=== PATIENT | male | born 1995 | race Caucasian/White ===

== ENCOUNTER 2021-08-23 03:42 | Emergency (ER) | payer OTHER ==
[2021-08-23] MEDS ORDERED: Lorazepam 2 MG/ML VIAL ONE (04:27)
[2021-08-23] MEDS ORDERED: Ondansetron PF 4 MG/2 ML Vial ONE (04:27)
[2021-08-23 04:39] LABS: ALT (SGPT) 56 U/L (8-55); AST (SGOT) 57 U/L (5-34); Acetaminophen Less than 6.0 mcg/mL (10.0-30.0); Albumin 4.5 g/dL (3.5-5.0); Alkaline Phosphatase 74 U/L (40-110); Anion Gap 19 mmol/L (10-20); BUN (Urea Nitrogen) 9 mg/dL (8.9-20.6); Bilirubin, Total 0.4 mg/dL (0.2-1.2); CK (CPK) 314 U/L (30-200); Calc. Creatinine Clearance 0 mL/min (70-130); Calcium 9.1 mg/dL (7.8-10.44); Carbon Dioxide 28 mmol/L (22-29); Chloride 102 mmol/L (98-107); Globulin 3.5 g/dL (2.4-3.5); Glucose 125 mg/dL (70-105); Magnesium 1.7 mg/dL (1.6-2.6); Potassium 3.2 mmol/L (3.5-5.1); Salicylate Less than 8.0 mg/dL (15.0-30.0); Sodium 146 mmol/L (136-145)
[2021-08-23 04:47] LABS: #Eosinphils 0.1 10x3/uL (0.0-0.5); #Monocytes 0.4 10x3/uL (0.0-1.1); #Neutrophils 4.5 10x3/uL (1.5-8.4); %Basophils 0.6 % (0.0-2.0); %Eosinophils 1.4 % (0.0-6.0); %Lymphocytes 29.4 % (18.0-47.0); %Monocytes 5.6 % (0.0-10.0); %Neutrophils 62.6 % (40.0-75.0); Hemoglobin 14.9 g/dL (13.5-17.5); Mean Corpuscular HGB CONC 33.6 g/dL (32.0-36.0); Mean Corpuscular Hemoglobin 28.3 pg (27.0-33.0); Mean Corpuscular Volume 84.1 fl (81.2-95.1); Mean Platelet Volume 8.8 fl (7.4-10.4); Platelet Count 186 10x3/uL (150-450); Red Blood Cell (RBC) Count 5.27 10x6/uL (4.32-5.72); White Blood Cell (WBC) Count 7.2 10x3/uL (3.5-10.5)
[2021-08-23 04:56] LABS: Alcohol 413 mg/dL (Less than 10)
== END 2021-08-23 05:44 | disposition left against medical advice (07) ==
LOC: CSHERS 03:42
DX: F10.129 Alcohol abuse with intoxication, unspecified (principal); Y90.8 Blood alcohol level of 240 mg/100 ml or more
CPT/HCPCS: 70450; 71260; 72125; 74177; 80053; 80307; 82550; 83690; 83735; 85025; 93005; J2060; J2405

== ENCOUNTER 2021-08-25 07:54 | Inpatient (IN) | payer OTHER ==
[2021-08-25] MEDS ORDERED: Lorazepam 2 MG/ML VIAL ONE ×3 (08:00→09:55)
[2021-08-25 08:45] LABS: #Monocytes 0.3 10x3/uL (0.0-1.1); #Neutrophils 3.7 10x3/uL (1.5-8.4); %Basophils 0.7 % (0.0-2.0); %Eosinophils 0.7 % (0.0-6.0); %Lymphocytes 29.6 % (18.0-47.0); %Monocytes 5.3 % (0.0-10.0); %Neutrophils 63.5 % (40.0-75.0); Hemoglobin 13.2 g/dL (13.5-17.5); Mean Corpuscular HGB CONC 33.2 g/dL (32.0-36.0); Mean Corpuscular Volume 84.5 fl (81.2-95.1); Mean Platelet Volume 8.9 fl (7.4-10.4); Platelet Count 129 10x3/uL (150-450); RBC Distribution Width 12.5 % (11.5-14.5); Red Blood Cell (RBC) Count 4.71 10x6/uL (4.32-5.72); White Blood Cell (WBC) Count 5.8 10x3/uL (3.5-10.5)
[2021-08-25 08:52] LABS: ALT (SGPT) 47 U/L (8-55); AST (SGOT) 58 U/L (5-34); Acetaminophen Less than 6.0 mcg/mL (10.0-30.0); Albumin 4.2 g/dL (3.5-5.0); Alcohol 340 mg/dL (Less than 10); Alkaline Phosphatase 73 U/L (40-110); Anion Gap 20 mmol/L (10-20); BUN (Urea Nitrogen) 10 mg/dL (8.9-20.6); Bilirubin, Total 0.6 mg/dL (0.2-1.2); CK (CPK) 332 U/L (30-200); Calc. Creatinine Clearance 0 mL/min (70-130); Calcium 8.3 mg/dL (7.8-10.44); Carbon Dioxide 23 mmol/L (22-29); Chloride 100 mmol/L (98-107); Globulin 3.3 g/dL (2.4-3.5); Glucose 95 mg/dL (70-105); Lipase 60 U/L (8-78); Magnesium 1.5 mg/dL (1.6-2.6); Potassium 3.4 mmol/L (3.5-5.1); Protein, Total 7.5 g/dL (6.0-8.3); Salicylate Less than 8.0 mg/dL (15.0-30.0); Sodium 140 mmol/L (136-145)
[2021-08-25] MEDS ORDERED: Ondansetron ODT 4 MG TAB PO PRN (09:44)
[2021-08-25] MEDS ORDERED: Lorazepam 2 MG/ML VIAL IVPB PRN (09:44)
[2021-08-25] MEDS ORDERED: Electrolyte Replacement Protocol 1 EACH IVPB ONE (09:44)
[2021-08-25] MEDS ORDERED: Electrolyte Replacement Protocol 1 EACH FS SCH (09:45)
[2021-08-25] MEDS ORDERED: Lactated Ringer's 500 ML IV SCH (10:00)
[2021-08-25] MEDS ORDERED: Magnesium 2 GM/50 ML BAG (IN WATER) ONE (10:00)
[2021-08-25] MEDS: Dexmedetomidine In 0.9 % NaCl 100 ML IVPB SCH ×2 (10:26→20:26)
[2021-08-25 10:36] LABS: #Eosinphils 0.1 10x3/uL (0.0-0.5); #Monocytes 0.3 10x3/uL (0.0-1.1); #Neutrophils 3.9 10x3/uL (1.5-8.4); %Basophils 0.7 % (0.0-2.0); %Eosinophils 0.8 % (0.0-6.0); %Lymphocytes 26.9 % (18.0-47.0); %Monocytes 5.2 % (0.0-10.0); %Neutrophils 66.2 % (40.0-75.0); Hemoglobin 12.5 g/dL (13.5-17.5); Mean Corpuscular HGB CONC 33.8 g/dL (32.0-36.0); Mean Corpuscular Hemoglobin 28.6 pg (27.0-33.0); Mean Corpuscular Volume 84.7 fl (81.2-95.1); Mean Platelet Volume 8.9 fl (7.4-10.4); Platelet Count 117 10x3/uL (150-450); RBC Distribution Width 12.6 % (11.5-14.5); Red Blood Cell (RBC) Count 4.37 10x6/uL (4.32-5.72); White Blood Cell (WBC) Count 5.9 10x3/uL (3.5-10.5)
[2021-08-25 10:41] LABS: Lactic Acid 3.4 mmol/L (0.5-2.2)
[2021-08-25 10:46] LABS: ALT (SGPT) 46 U/L (8-55); AST (SGOT) 55 U/L (5-34); Albumin 4.2 g/dL (3.5-5.0); Alkaline Phosphatase 71 U/L (40-110); Anion Gap 19 mmol/L (10-20); BUN (Urea Nitrogen) 9 mg/dL (8.9-20.6); Bilirubin, Direct 0.3 mg/dL (0.1-0.3); Bilirubin, Total 0.6 mg/dL (0.2-1.2); Calc. Creatinine Clearance 0 mL/min (70-130); Carbon Dioxide 24 mmol/L (22-29); Chloride 102 mmol/L (98-107); Globulin 3.1 g/dL (2.4-3.5); Glucose 96 mg/dL (70-105); Magnesium 1.9 mg/dL (1.6-2.6); Phosphorus 2.4 mg/dL (2.3-4.7); Potassium 3.5 mmol/L (3.5-5.1); Protein, Total 7.3 g/dL (6.0-8.3); Sodium 141 mmol/L (136-145)
[2021-08-25 11:05] LABS: Syphilis Antibody Nonreactive (Nonreactive)
[2021-08-25 11:13] LABS: Amphetamine Not Detected (NotDetected); Barbiturates Screen Not Detected (NotDetected); Benzodiazepine Screen Detected (NotDetected); Cocaine Metabolite Screen Not Detected (NotDetected); Methadone Not Detected (NotDetected); Methamphetamine Not Detected (NotDetected); Opiate Screen Not Detected (NotDetected); Oxycodone Screen Not Detected (NotDetected); Phencyclidine (PCP) Not Detected (NotDetected); THC/Cannabinoid Screen Not Detected (NotDetected); Tricyclic Screen Not Detected (NotDetected)
[2021-08-25] MEDS: Thiamine HCl 200 MG/2 ML VIAL SLOW IVP SCH (11:14)
[2021-08-25] MEDS: Lactated Ringer's 1,000 ML IV SCH ×2 (11:15→22:06)
[2021-08-25] MEDS: Potassium Chloride 20 MEQ in Premix Bag 1 BAG IVPB SCH ×2 (11:17→12:56)
[2021-08-25 11:26] LABS: SARS-CoV-2 NAA Rapid Test Not Detected (NotDetected)
[2021-08-25 11:38] LABS: Lactic Acid 2.7 mmol/L (0.5-2.2)
[2021-08-25] MEDS: Lorazepam 1 MG TAB PO SCH ×2 (12:00→17:54)
[2021-08-25] MEDS ORDERED: FLU VACC QS2021-22(6MOS UP)/PF 60 MCG/0.5 ML SYRINGE IM ONE (12:30)
[2021-08-25] MEDS: Ondansetron PF 4 MG/2 ML Vial IVP PRN (20:15)
[2021-08-25] MEDS: Lorazepam 1 MG TAB PO PRN (20:30)
[2021-08-25] MEDS ORDERED: Lorazepam 2 MG/ML VIAL SLOW IVP SCH (21:00)
[2021-08-25] MEDS ORDERED: Famotidine 20 MG TAB PO SCH (21:00)
[2021-08-26] MEDS: Lorazepam 1 MG TAB PO PRN (02:03)
[2021-08-26] MEDS ORDERED: Lorazepam 1 MG TAB PO SCH (03:45)
[2021-08-26 04:39] LABS: Magnesium 1.5 mg/dL (1.6-2.6)
[2021-08-26] MEDS ORDERED: Magnesium 2 GM/50 ML 2 GM in Premix Bag 1 BAG IVPB SCH ×2 (05:00→11:15)
[2021-08-26] MEDS ORDERED: Lorazepam 2 MG/ML VIAL SLOW IVP PRN (05:11)
[2021-08-26] MEDS: Lorazepam 2 MG/ML VIAL SLOW IVP SCH ×2 (05:27→08:49)
[2021-08-26] MEDS: Dexmedetomidine In 0.9 % NaCl 100 ML IVPB SCH ×3 (08:04→22:12)
[2021-08-26] MEDS: Enoxaparin Sodium 40 MG/0.4 ML SYRINGE SC SCH (08:31)
[2021-08-26] MEDS: Multivit, Therapeutic 1 TAB PO SCH (08:32)
[2021-08-26] MEDS: Famotidine/PF 20 mg/2ml Vial SLOW IVP SCH ×2 (08:32→22:10)
[2021-08-26] MEDS: Folic Acid 1 MG TAB PO SCH (08:32)
[2021-08-26] MEDS: Thiamine HCl 200 MG/2 ML VIAL SLOW IVP SCH (08:35)
[2021-08-26] MEDS ORDERED: Diazepam 10 MG/2 ML SYRINGE IVP PRN (08:57)
[2021-08-26] MEDS ORDERED: Lorazepam 1 MG TAB PO PRN (09:45)
[2021-08-26 10:05] LABS: ALT (SGPT) 36 U/L (8-55); AST (SGOT) 44 U/L (5-34); Albumin 3.8 g/dL (3.5-5.0); Alkaline Phosphatase 62 U/L (40-110); Anion Gap 18 mmol/L (10-20); BUN (Urea Nitrogen) 10 mg/dL (8.9-20.6); Bilirubin, Total 1.5 mg/dL (0.2-1.2); Calc. Creatinine Clearance 192 mL/min (70-130); Carbon Dioxide 21 mmol/L (22-29); Chloride 99 mmol/L (98-107); Globulin 2.8 g/dL (2.4-3.5); Glucose 101 mg/dL (70-105); Potassium 3.7 mmol/L (3.5-5.1); Protein, Total 6.6 g/dL (6.0-8.3); Sodium 134 mmol/L (136-145)
[2021-08-26 10:20] LABS: CK (CPK) 282 U/L (30-200); Phosphorus 2.1 mg/dL (2.3-4.7)
[2021-08-26] MEDS: Diazepam 10 MG/2 ML SYRINGE IVP SCH ×2 (11:00→22:12)
[2021-08-26] MEDS: Ondansetron PF 4 MG/2 ML Vial IVP PRN (22:11)
[2021-08-27] MEDS: traZODone HCl 50 MG TAB PO PRN ×2 (00:31→23:42)
[2021-08-27 04:55] LABS: ALT (SGPT) 40 U/L (8-55); AST (SGOT) 55 U/L (5-34); Albumin 4.1 g/dL (3.5-5.0); Alkaline Phosphatase 76 U/L (40-110); Anion Gap 16 mmol/L (10-20); BUN (Urea Nitrogen) 6 mg/dL (8.9-20.6); Bilirubin, Total 1.2 mg/dL (0.2-1.2); Calc. Creatinine Clearance 190 mL/min (70-130); Calcium 8.8 mg/dL (7.8-10.44); Carbon Dioxide 24 mmol/L (22-29); Chloride 99 mmol/L (98-107); Globulin 3.2 g/dL (2.4-3.5); Glucose 82 mg/dL (70-105); Protein, Total 7.3 g/dL (6.0-8.3); Sodium 135 mmol/L (136-145)
[2021-08-27 05:21] VITALS: BMI 30.2
[2021-08-27] MEDS: Famotidine/PF 20 mg/2ml Vial SLOW IVP SCH ×2 (08:45→20:45)
[2021-08-27] MEDS: Multivit, Therapeutic 1 TAB PO SCH (08:45)
[2021-08-27] MEDS: Folic Acid 1 MG TAB PO SCH (08:45)
[2021-08-27] MEDS: Enoxaparin Sodium 40 MG/0.4 ML SYRINGE SC SCH (08:45)
[2021-08-27] MEDS: Thiamine HCl 200 MG/2 ML VIAL SLOW IVP SCH (08:50)
[2021-08-27] MEDS ORDERED: Diazepam 5 MG TAB PO SCH (09:00)
[2021-08-27] MEDS ORDERED: Lorazepam 1 MG TAB PO PRN (09:45)
[2021-08-27] MEDS ORDERED: Lorazepam 0.5 MG TAB PO SCH (09:45)
[2021-08-27] MEDS: Lorazepam 2 MG/ML VIAL SLOW IVP PRN ×3 (11:18→23:41)
[2021-08-27] MEDS ORDERED: Losartan Potassium 50 MG TAB PO SCH (13:15)
[2021-08-27] MEDS: chlordiazePOXIDE HCl 5 MG CAP PO SCH ×2 (15:26→20:45)
[2021-08-27] MEDS ORDERED: hydrALAZINE 20 MG/ML VIAL SLOW IVP PRN (16:40)
[2021-08-27 17:23] VITALS: BP 158/107
[2021-08-27] MEDS: Gabapentin 300 MG CAP PO SCH (20:45)
[2021-08-27] MEDS: Methocarbamol 500 MG TAB PO SCH (20:46)
[2021-08-28] MEDS: Lorazepam 2 MG/ML VIAL SLOW IVP PRN (06:10)
[2021-08-28] MEDS: Enoxaparin Sodium 40 MG/0.4 ML SYRINGE SC SCH (08:08)
[2021-08-28] MEDS: Folic Acid 1 MG TAB PO SCH (08:08)
[2021-08-28] MEDS: Methocarbamol 500 MG TAB PO SCH (08:08)
[2021-08-28] MEDS: Multivit, Therapeutic 1 TAB PO SCH (08:08)
[2021-08-28] MEDS: Famotidine/PF 20 mg/2ml Vial SLOW IVP SCH (08:09)
[2021-08-28] MEDS: chlordiazePOXIDE HCl 5 MG CAP PO SCH (08:09)
[2021-08-28] MEDS: Gabapentin 300 MG CAP PO SCH (08:09)
[2021-08-28] MEDS ORDERED: Losartan Potassium 50 MG TAB PO SCH (09:00)
[2021-08-28] MEDS ORDERED: Thiamine 100 MG TAB PO SCH (09:00)
[2021-08-28] MEDS ORDERED: Lorazepam 0.5 MG TAB PO PRN (09:45)
== END 2021-08-28 13:25 | disposition home or self-care (01) | DRG 897 ==
LOC: CSHERS 07:54 → CSHICU 09:57
PROVIDERS: ADMIT Family Medicine; ATTEND Hospitalist
PROC: HZ2ZZZZ Detoxification Services for Substance Abuse Treatment (ICD-10-PCS; principal; 2021-08-25)
DX: F10.231 Alcohol dependence with withdrawal delirium (principal); E87.2 Acidosis; F10.232 Alcohol dependence with withdrawal with perceptual disturbance; F41.1 Generalized anxiety disorder; Z20.822 Contact with and (suspected) exposure to COVID-19; F43.10 Post-traumatic stress disorder, unspecified; Z79.899 Other long term (current) drug therapy; F32.A Depression, unspecified; E78.5 Hyperlipidemia, unspecified; I10 Essential (primary) hypertension; F10.129 Alcohol abuse with intoxication, unspecified; Y90.8 Blood alcohol level of 240 mg/100 ml or more
CPT/HCPCS: 36415; 36416; 70450; 71045; 71260; 72125; 74177; 80053; 80306; 80307; 82248; 82550; 83605; 83690; 83735; 83880; 84100; 84132; 85025; 86780; 93005; 93010; 96374; 96375; 96376; J0360; J1650; J2060; J2405; J3360; J3411; J3475; J3480; J7120; S0028; U0002

== ENCOUNTER 2021-10-03 21:39 | Emergency (ER) | payer OTHER ==
[2021-10-03] MEDS ORDERED: Lorazepam 2 MG/ML VIAL ONE (23:06)
[2021-10-03] MEDS ORDERED: Lidocaine Viscous Sol 2% 15 ml UD Cup ONE (23:07)
[2021-10-03] MEDS ORDERED: Mag-Al Plus 1200 MG/1200 MG/120 MG/30 ML UDCUP ONE (23:07)
[2021-10-03 23:14] LABS: #Eosinphils 0.2 10x3/uL (0.0-0.5); #Monocytes 0.4 10x3/uL (0.0-1.1); #Neutrophils 4.5 10x3/uL (1.5-8.4); %Basophils 0.5 % (0.0-2.0); %Eosinophils 2.5 % (0.0-6.0); %Lymphocytes 34.7 % (18.0-47.0); Hemoglobin 14.6 g/dL (13.5-17.5); Mean Corpuscular HGB CONC 33.2 g/dL (32.0-36.0); Mean Corpuscular Hemoglobin 28.2 pg (27.0-33.0); Mean Corpuscular Volume 84.9 fl (81.2-95.1); Mean Platelet Volume 9.9 fl (7.4-10.4); Platelet Count 212 10x3/uL (150-450); RBC Distribution Width 12.6 % (11.5-14.5); Red Blood Cell (RBC) Count 5.18 10x6/uL (4.32-5.72); White Blood Cell (WBC) Count 7.9 10x3/uL (3.5-10.5)
[2021-10-03 23:26] LABS: ALT (SGPT) 64 U/L (8-55); AST (SGOT) 36 U/L (5-34); Acetaminophen Less than 6.0 mcg/mL (10.0-30.0); Albumin 4.5 g/dL (3.5-5.0); Alcohol 247 mg/dL (Less than 10); Alkaline Phosphatase 69 U/L (40-110); Anion Gap 15 mmol/L (10-20); BUN (Urea Nitrogen) 6 mg/dL (8.9-20.6); Bilirubin, Total 0.4 mg/dL (0.2-1.2); CK (CPK) 151 U/L (30-200); Calc. Creatinine Clearance 0 mL/min (70-130); Calcium 9.1 mg/dL (7.8-10.44); Carbon Dioxide 24 mmol/L (22-29); Chloride 111 mmol/L (98-107); Globulin 3.4 g/dL (2.4-3.5); Glucose 101 mg/dL (70-105); Potassium 3.6 mmol/L (3.5-5.1); Protein, Total 7.9 g/dL (6.0-8.3); Salicylate Less than 8.0 mg/dL (15.0-30.0); Sodium 146 mmol/L (136-145)
== END 2021-10-03 23:36 | disposition home or self-care (01) ==
LOC: CSHERS 21:39
DX: F10.10 Alcohol abuse, uncomplicated (principal); E78.5 Hyperlipidemia, unspecified; I10 Essential (primary) hypertension; Z79.899 Other long term (current) drug therapy
CPT/HCPCS: 36415; 71045; 80053; 80307; 82550; 83605; 83690; 84484; 85025; 93005; 93010; 96374; J2060

== ENCOUNTER 2021-10-08 10:40 | Inpatient (IN) | payer OTHER ==
[2021-10-08] MEDS ORDERED: Ondansetron PF 4 MG/2 ML Vial ONE (11:21)
[2021-10-08] MEDS ORDERED: Lorazepam 2 MG/ML VIAL ONE (11:21)
[2021-10-08 11:46] LABS: #Basophils 0.1 10x3/uL (0.0-0.2); #Eosinphils 0.1 10x3/uL (0.0-0.5); #Monocytes 0.3 10x3/uL (0.0-1.1); %Basophils 0.9 % (0.0-2.0); %Eosinophils 1.2 % (0.0-6.0); %Lymphocytes 40.3 % (18.0-47.0); %Monocytes 5.4 % (0.0-10.0); %Neutrophils 51.7 % (40.0-75.0); Hemoglobin 14.6 g/dL (13.5-17.5); Mean Corpuscular HGB CONC 33.3 g/dL (32.0-36.0); Mean Corpuscular Hemoglobin 28.1 pg (27.0-33.0); Mean Corpuscular Volume 84.2 fl (81.2-95.1); Platelet Count 223 10x3/uL (150-450); RBC Distribution Width 12.6 % (11.5-14.5); White Blood Cell (WBC) Count 5.7 10x3/uL (3.5-10.5)
[2021-10-08 12:05] LABS: ALT (SGPT) 59 U/L (8-55); AST (SGOT) 41 U/L (5-34); Albumin 4.3 g/dL (3.5-5.0); Alcohol 140 mg/dL (Less than 10); Alkaline Phosphatase 71 U/L (40-110); Anion Gap 18 mmol/L (10-20); BUN (Urea Nitrogen) 12 mg/dL (8.9-20.6); Bilirubin, Total 0.8 mg/dL (0.2-1.2); Calc. Creatinine Clearance 0 mL/min (70-130); Carbon Dioxide 24 mmol/L (22-29); Chloride 106 mmol/L (98-107); Globulin 3.3 g/dL (2.4-3.5); Glucose 98 mg/dL (70-105); Lipase 26 U/L (8-78); Protein, Total 7.6 g/dL (6.0-8.3); Sodium 144 mmol/L (136-145)
[2021-10-08] MEDS ORDERED: Thiamine HCl 200 MG/2 ML VIAL ONE (13:58)
[2021-10-08] MEDS ORDERED: ADMIXTURE FEE IVPB SCH (14:30)
[2021-10-08] MEDS ORDERED: SODIUM CHLORIDE IVPB SCH (14:30)
[2021-10-08] MEDS ORDERED: PHENOBARBITAL SODIUM IVPB SCH (14:30)
[2021-10-08 16:52] LABS: SARS-CoV-2 NAA Rapid Test DETECTED (NotDetected)
[2021-10-08] MEDS ORDERED: Lorazepam 2 MG/ML VIAL IM PRN (18:30)
[2021-10-08] MEDS ORDERED: Electrolyte Replacement Protocol FS SCH (18:30)
[2021-10-08] MEDS: Lorazepam 1 MG TAB PO SCH (18:30)
[2021-10-08] MEDS ORDERED: Ondansetron ODT 4 MG TAB PO PRN (18:30)
[2021-10-08] MEDS: Sodium Chloride 0.9% 1,000 ML IV SCH (19:45)
[2021-10-08] MEDS ORDERED: Thiamine HCl 200 MG/2 ML VIAL SLOW IVP SCH (21:00)
[2021-10-08] MEDS: Lorazepam 1 MG TAB PO PRN ×2 (21:47→23:53)
[2021-10-08] MEDS ORDERED: Magnesium 2 GM/50 ML 2 GM in Premix Bag 1 BAG IVPB SCH (22:15)
[2021-10-08 22:32] VITALS: BMI 27.9
[2021-10-09] MEDS: Lorazepam 1 MG TAB PO SCH ×2 (00:56→06:27)
[2021-10-09] MEDS: Sodium Chloride 0.9% 1,000 ML IV SCH (05:44)
[2021-10-09 06:32] LABS: ALT (SGPT) 46 U/L (8-55); AST (SGOT) 33 U/L (5-34); Albumin 3.6 g/dL (3.5-5.0); Alkaline Phosphatase 64 U/L (40-110); Anion Gap 13 mmol/L (10-20); BUN (Urea Nitrogen) 14 mg/dL (8.9-20.6); Bilirubin, Total 1.6 mg/dL (0.2-1.2); Calc. Creatinine Clearance 153 mL/min (70-130); Calcium 8.3 mg/dL (7.8-10.44); Carbon Dioxide 25 mmol/L (22-29); Chloride 106 mmol/L (98-107); Globulin 2.7 g/dL (2.4-3.5); Glucose 93 mg/dL (70-105); Magnesium 1.8 mg/dL (1.6-2.6); Potassium 3.8 mmol/L (3.5-5.1); Protein, Total 6.3 g/dL (6.0-8.3); Sodium 140 mmol/L (136-145)
[2021-10-09] MEDS ORDERED: Magnesium 2 GM/50 ML 2 GM in Premix Bag 1 BAG IVPB SCH (08:00)
[2021-10-09 08:40] VITALS: BP 128/81; TEMP 98.7
[2021-10-09] MEDS ORDERED: Multivit, Therapeutic 1 TAB PO SCH (09:00)
[2021-10-09] MEDS ORDERED: Folic Acid 1 MG TAB PO SCH (09:00)
[2021-10-09] MEDS ORDERED: Lorazepam 1 MG TAB PO PRN (18:30)
[2021-10-10] MEDS ORDERED: Lorazepam 0.5 MG TAB PO SCH (18:30)
[2021-10-10] MEDS ORDERED: Lorazepam 1 MG TAB PO PRN (18:30)
[2021-10-11] MEDS ORDERED: Lorazepam 0.5 MG TAB PO PRN (18:30)
[2021-10-11] MEDS ORDERED: Thiamine 100 MG TAB PO SCH (21:00)
== END 2021-10-09 12:14 | disposition home or self-care (01) | DRG 896 ==
LOC: CSHERS 10:40 → CSHTELE 20:37 → OBSVTOIN 20:38
PROVIDERS: ADMIT Student in an Organized Health Care Education/Training Program; ATTEND Internal Medicine
PROC: HZ2ZZZZ Detoxification Services for Substance Abuse Treatment (ICD-10-PCS; principal; 2021-10-08)
PROC: 8E0ZXY6 Isolation (ICD-10-PCS; 2021-10-08)
DX: F10.231 Alcohol dependence with withdrawal delirium (principal); U07.1 COVID-19; F43.10 Post-traumatic stress disorder, unspecified; R00.0 Tachycardia, unspecified; Y90.6 Blood alcohol level of 120-199 mg/100 ml; F41.9 Anxiety disorder, unspecified; F32.A Depression, unspecified; Z71.41 Alcohol abuse counseling and surveillance of alcoholic
CPT/HCPCS: 36415; 71045; 74177; 80053; 80307; 83690; 83735; 84100; 93005; 93010; J2060; J2405; J2560; J3411; J3475; J3490; J7050; U0002

== ENCOUNTER 2021-10-31 12:29 | Observation (INO) | payer OTHER ==
[2021-10-31 13:23] LABS: #Monocytes 0.4 10x3/uL (0.0-1.1); #Neutrophils 5.3 10x3/uL (1.5-8.4); %Basophils 0.6 % (0.0-2.0); %Eosinophils 0.1 % (0.0-6.0); %Lymphocytes 14.5 % (18.0-47.0); %Monocytes 6.4 % (0.0-10.0); Hemoglobin 13.8 g/dL (13.5-17.5); Mean Corpuscular Hemoglobin 28.8 pg (27.0-33.0); Mean Corpuscular Volume 82.3 fl (81.2-95.1); Mean Platelet Volume 9.7 fl (7.4-10.4); Platelet Count 150 10x3/uL (150-450); Red Blood Cell (RBC) Count 4.79 10x6/uL (4.32-5.72); White Blood Cell (WBC) Count 6.9 10x3/uL (3.5-10.5)
[2021-10-31 13:36] LABS: Magnesium 1.4 mg/dL (1.6-2.6); Phosphorus 2.1 mg/dL (2.3-4.7)
[2021-10-31] MEDS ORDERED: diphenhydrAMINE 50 MG/ML VIAL ONE (13:36)
[2021-10-31] MEDS ORDERED: Thiamine HCl 200 MG/2 ML VIAL ONE (13:36)
[2021-10-31] MEDS ORDERED: Folic Acid 1 MG TAB ONE (13:37)
[2021-10-31] MEDS ORDERED: Metoclopramide HCl 10 MG/2 ML VIAL ONE (13:37)
[2021-10-31 13:38] LABS: Albumin 4.5 g/dL (3.5-5.0); Anion Gap 19 mmol/L (10-20); BUN (Urea Nitrogen) 11 mg/dL (8.9-20.6); Bilirubin, Total 1.4 mg/dL (0.2-1.2); Calc. Creatinine Clearance 0 mL/min (70-130); Calcium 9.4 mg/dL (7.8-10.44); Carbon Dioxide 22 mmol/L (22-29); Chloride 100 mmol/L (98-107); Globulin 3.4 g/dL (2.4-3.5); Glucose 109 mg/dL (70-105); Potassium 3.9 mmol/L (3.5-5.1); Protein, Total 7.9 g/dL (6.0-8.3); Sodium 137 mmol/L (136-145)
[2021-10-31 13:39] LABS: ALT (SGPT) 40 U/L (8-55); AST (SGOT) 63 U/L (5-34); Acetaminophen Less than 6.0 mcg/mL (10.0-30.0); Alcohol Less than 10 mg/dL (Less than 10); Alkaline Phosphatase 73 U/L (40-110); CK (CPK) 495 U/L (30-200); Salicylate Less than 8.0 mg/dL (15.0-30.0)
[2021-10-31] MEDS ORDERED: Diazepam 10 MG/2 ML SYRINGE ONE (13:44)
[2021-10-31 14:07] LABS: SARS-CoV-2 NAA Rapid Test Not Detected (NotDetected)
[2021-10-31 15:00] LABS: Bilirubin Neg (Negative); Blood, Urine Negative (Negative); Clarity Clear (Clear); Glucose, Urine (Dipstick) Normal (Negative); Ketone, Urine 150 mg/dL (Negative); Leukocyte Negative (Negative); Nitrite Negative (Negative); Protein, Urine (Dipstick) 30 mg/dl (Neg-Trace); Specific Gravity, Urine 1.005 (1.002-1.036); Urobilinogen Normal mg/dL (Less than 2)
[2021-10-31] MEDS ORDERED: Prenatal Vitamin 1 TAB PO SCH (15:00)
[2021-10-31 15:11] LABS: Amphetamine Not Detected (NotDetected); Barbiturates Screen Detected (NotDetected); Benzodiazepine Screen Detected (NotDetected); Cocaine Metabolite Screen Not Detected (NotDetected); Methadone Not Detected (NotDetected); Methamphetamine Not Detected (NotDetected); Opiate Screen Not Detected (NotDetected); Oxycodone Screen Not Detected (NotDetected); Phencyclidine (PCP) Not Detected (NotDetected); THC/Cannabinoid Screen Not Detected (NotDetected); Tricyclic Screen Not Detected (NotDetected)
[2021-10-31 15:18] LABS: Bacteria/HPF Rare-Few HPF (None Seen); RBC/HPF None Seen HPF (0-3); Squamous Epithelial 0-3 HPF (0-3); WBC/HPF 0-3 HPF (0-3)
[2021-10-31] MEDS ORDERED: Loperamide HCl 2 MG CAP PO PRN ×2 (15:50)
[2021-10-31] MEDS ORDERED: Acetaminophen 650 MG Suppository PR PRN (15:50)
[2021-10-31] MEDS ORDERED: Ondansetron PF 4 MG/2 ML Vial IVP PRN (15:50)
[2021-10-31] MEDS ORDERED: Acetaminophen 325 MG TAB PO PRN (15:50)
[2021-10-31] MEDS ORDERED: hydrALAZINE 20 MG/ML VIAL SLOW IVP PRN (15:52)
[2021-10-31] MEDS ORDERED: Lorazepam 1 MG TAB PO PRN ×2 (15:53→23:59)
[2021-10-31] MEDS ORDERED: Lorazepam 2 MG/ML VIAL IM PRN ×2 (15:53→23:59)
[2021-10-31] MEDS ORDERED: Ondansetron ODT 4 MG TAB ONE (17:46)
[2021-10-31] MEDS ORDERED: Enoxaparin Sodium 40 MG/0.4 ML SYRINGE ONE (17:46)
[2021-10-31] MEDS ORDERED: Lorazepam 1 MG TAB ONE (17:46)
[2021-10-31] MEDS ORDERED: Pantoprazole 40 MG VIAL ONE (17:47)
[2021-10-31 23:11] VITALS: BMI 65.3
[2021-10-31] MEDS ORDERED: chlordiazePOXIDE HCl 5 MG CAP PO SCH (23:30)
[2021-10-31] MEDS ORDERED: Gabapentin 300 MG CAP PO SCH (23:30)
[2021-10-31] MEDS ORDERED: Enoxaparin Sodium 40 MG/0.4 ML SYRINGE SC SCH (23:30)
[2021-10-31] MEDS ORDERED: Electrolyte Replacement Protocol 1 EACH FS SCH (23:59)
[2021-11-01] MEDS: Sodium Chloride 0.9% 1,000 ML IV SCH ×2 (00:13→10:06)
[2021-11-01] MEDS: Magnesium 2 GM/50 ML 2 GM in Premix Bag 1 BAG IVPB SCH ×2 (00:29→02:15)
[2021-11-01] MEDS: Lorazepam 1 MG TAB PO SCH ×2 (00:29→06:45)
[2021-11-01] MEDS: Ondansetron ODT 4 MG TAB PO PRN ×2 (00:29→09:23)
[2021-11-01] MEDS: Pantoprazole 40 MG VIAL IVP SCH ×2 (01:24→09:04)
[2021-11-01 05:18] LABS: Magnesium 2.6 mg/dL (1.6-2.6)
[2021-11-01] MEDS ORDERED: Gabapentin 300 MG CAP PO SCH (09:00)
[2021-11-01] MEDS ORDERED: Multivit, Therapeutic 1 TAB PO SCH (09:00)
[2021-11-01] MEDS ORDERED: Losartan 25 MG TAB PO SCH (09:00)
[2021-11-01] MEDS ORDERED: chlordiazePOXIDE HCl 5 MG CAP PO SCH (09:00)
[2021-11-01] MEDS ORDERED: Enoxaparin Sodium 40 MG/0.4 ML SYRINGE SC SCH (09:00)
[2021-11-01] MEDS ORDERED: Folic Acid 1 MG TAB PO SCH (09:00)
[2021-11-01 15:46] VITALS: BP 127/87; TEMP 97.3
[2021-11-01] MEDS ORDERED: Lorazepam 1 MG TAB PO PRN (23:59)
[2021-11-01] MEDS ORDERED: Thiamine HCl 200 MG/2 ML VIAL SLOW IVP SCH (23:59)
[2021-11-02] MEDS ORDERED: Lorazepam 0.5 MG TAB PO SCH (23:59)
[2021-11-02] MEDS ORDERED: Lorazepam 1 MG TAB PO PRN (23:59)
[2021-11-03] MEDS ORDERED: Lorazepam 0.5 MG TAB PO PRN (23:59)
[2021-11-04] MEDS ORDERED: Thiamine 100 MG TAB PO SCH (23:59)
== END 2021-11-01 18:30 | disposition home or self-care (01) ==
LOC: CSHERS 12:29 → CSHTELE 21:17 → INTOOBSV 21:17
PROVIDERS: ADMIT Emergency Medicine; ATTEND Emergency Medicine
DX: F10.139 Alcohol abuse with withdrawal, unspecified (principal); W19.XXXA Unspecified fall, initial encounter; I10 Essential (primary) hypertension; Z20.822 Contact with and (suspected) exposure to COVID-19
CPT/HCPCS: 36415; 70450; 80053; 80306; 80307; 81003; 81015; 82550; 83605; 83690; 83735; 84100; 84443; 85025; 93005; 94760; 96365; 96367; 96372; 96375; 96376; C9113; G0378; J1200; J1650; J2765; J3360; J3411; J3475; J7050; Q0162; U0002

== ENCOUNTER 2022-02-23 09:14 | Inpatient (IN) | payer OTHER ==
[2022-02-23 10:13] LABS: #Basophils 0.1 10x3/uL (0.0-0.2); #Monocytes 0.4 10x3/uL (0.0-1.1); #Neutrophils 4.7 10x3/uL (1.5-8.4); %Basophils 0.7 % (0.0-2.0); %Eosinophils 0.1 % (0.0-6.0); %Lymphocytes 22.9 % (18.0-47.0); %Monocytes 6.2 % (0.0-10.0); Hemoglobin 14.8 g/dL (13.5-17.5); Mean Corpuscular HGB CONC 35.4 g/dL (32.0-36.0); Mean Corpuscular Hemoglobin 28.6 pg (27.0-33.0); Mean Corpuscular Volume 80.9 fl (81.2-95.1); Platelet Count 152 10x3/uL (150-450); RBC Distribution Width 12.8 % (11.5-14.5); Red Blood Cell (RBC) Count 5.17 10x6/uL (4.32-5.72); White Blood Cell (WBC) Count 6.8 10x3/uL (3.5-10.5)
[2022-02-23 10:25] LABS: ALT (SGPT) 77 U/L (8-55); AST (SGOT) 72 U/L (5-34); Albumin 4.3 g/dL (3.5-5.0); Alkaline Phosphatase 73 U/L (40-110); Anion Gap 23 mmol/L (10-20); BUN (Urea Nitrogen) 10 mg/dL (8.9-20.6); Bilirubin, Total 1.1 mg/dL (0.2-1.2); Calc. Creatinine Clearance 0 mL/min (70-130); Calcium 8.7 mg/dL (7.8-10.44); Carbon Dioxide 20 mmol/L (22-29); Chloride 100 mmol/L (98-107); Estimated GFR 119; Globulin 3.3 g/dL (2.4-3.5); Glucose 113 mg/dL (70-105); Lipase 42 U/L (8-78); Potassium 3.5 mmol/L (3.5-5.1); Protein, Total 7.6 g/dL (6.0-8.3); Sodium 139 mmol/L (136-145)
[2022-02-23] MEDS ORDERED: diphenhydrAMINE 50 MG/ML VIAL ONE (10:32)
[2022-02-23] MEDS ORDERED: chlordiazePOXIDE HCl 25 MG CAP ONE (10:32)
[2022-02-23] MEDS ORDERED: Lorazepam 2 MG/ML VIAL ONE ×3 (10:32→14:51)
[2022-02-23] MEDS ORDERED: Metoclopramide HCl 10 MG/2 ML VIAL ONE (10:32)
[2022-02-23 13:23] LABS: SARS-CoV-2 NAA Rapid Test Not Detected (NotDetected)
[2022-02-23] MEDS ORDERED: Senokot S 8.6-50 MG TAB PO PRN (14:08)
[2022-02-23] MEDS ORDERED: Lorazepam 1 MG TAB PO PRN (14:08)
[2022-02-23] MEDS ORDERED: Bisacodyl 5 MG TAB PO PRN (14:08)
[2022-02-23] MEDS ORDERED: Lorazepam 2 MG/ML VIAL IM PRN (14:08)
[2022-02-23] MEDS ORDERED: Bisacodyl 10 MG SUPP PR PRN (14:08)
[2022-02-23] MEDS ORDERED: Calcium Carbonate 500 MG ChewTAB PO PRN (14:08)
[2022-02-23] MEDS ORDERED: Ondansetron ODT 4 MG TAB PO PRN (14:08)
[2022-02-23] MEDS ORDERED: Acetaminophen 325 MG TAB PO PRN (14:08)
[2022-02-23] MEDS ORDERED: Electrolyte Replacement Protocol 1 EACH FS PRN (14:15)
[2022-02-23] MEDS ORDERED: Lactated Ringer's 1,000 ML IV SCH (14:30)
[2022-02-23] MEDS ORDERED: Folic Acid 1 MG TAB PO SCH (15:00)
[2022-02-23 15:27] VITALS: BMI 29.3
[2022-02-23] MEDS: Diazepam 5 MG TAB PO SCH ×2 (15:37→20:11)
[2022-02-23] MEDS: Gabapentin 300 MG CAP PO SCH ×2 (15:39→20:11)
[2022-02-23] MEDS ORDERED: Potassium Chloride 20 MEQ TAB PO SCH (16:00)
[2022-02-23] MEDS: Lactated Ringer's 1,000 ML IV SCH ×2 (16:10→23:23)
[2022-02-23] MEDS ORDERED: Prevnar 13-Val Conj/PF 0.5 ML SYRINGE IM ONE (17:45)
[2022-02-23] MEDS: Famotidine 20 MG TAB PO SCH (20:11)
[2022-02-23] MEDS: Lorazepam 1 MG TAB PO SCH (20:11)
[2022-02-23] MEDS: Melatonin 3 MG TAB PO SCH (20:12)
[2022-02-23 20:16] LABS: Hemoglobin A1c 5.1 % (4.0-6.0)
[2022-02-23] MEDS ORDERED: Famotidine/PF 20 mg/2ml Vial SLOW IVP PRN (21:00)
[2022-02-23] MEDS: Metoprolol Tartrate 25 MG TAB PO SCH (21:26)
[2022-02-24] MEDS: Lorazepam 1 MG TAB PO SCH ×3 (01:56→15:45)
[2022-02-24 02:55] LABS: Bilirubin Neg (Negative); Blood, Urine Negative (Negative); Glucose, Urine (Dipstick) Normal (Negative); Ketone, Urine 150 mg/dL (Negative); Leukocyte Negative (Negative); Nitrite Negative (Negative); Protein, Urine (Dipstick) Negative (Neg-Trace); Specific Gravity, Urine 1.015 (1.002-1.036); Urobilinogen Normal mg/dL (Less than 2)
[2022-02-24 02:57] LABS: Clarity Slightly Cloudy (Clear)
[2022-02-24 03:05] LABS: Amphetamine Not Detected (NotDetected); Bacteria/HPF None Seen HPF (None Seen); Barbiturates Screen Not Detected (NotDetected); Benzodiazepine Screen Detected (NotDetected); Cocaine Metabolite Screen Not Detected (NotDetected); Methadone Not Detected (NotDetected); Methamphetamine Not Detected (NotDetected); Opiate Screen Not Detected (NotDetected); Oxycodone Screen Not Detected (NotDetected); Phencyclidine (PCP) Not Detected (NotDetected); RBC/HPF None Seen HPF (0-3); Squamous Epithelial 0-3 HPF (0-3); THC/Cannabinoid Screen Not Detected (NotDetected); Tricyclic Screen Not Detected (NotDetected); WBC/HPF 0-3 HPF (0-3)
[2022-02-24 03:06] LABS: Urine Culture Reflex No No
[2022-02-24 05:26] LABS: #Eosinphils 0.1 10x3/uL (0.0-0.5); #Monocytes 0.4 10x3/uL (0.0-1.1); #Neutrophils 3.1 10x3/uL (1.5-8.4); %Basophils 0.6 % (0.0-2.0); %Eosinophils 1.8 % (0.0-6.0); %Lymphocytes 30.5 % (18.0-47.0); %Monocytes 7.2 % (0.0-10.0); %Neutrophils 59.7 % (40.0-75.0); Hemoglobin 12.4 g/dL (13.5-17.5); Mean Corpuscular HGB CONC 34.9 g/dL (32.0-36.0); Mean Corpuscular Volume 83.1 fl (81.2-95.1); Platelet Count 118 10x3/uL (150-450); RBC Distribution Width 12.9 % (11.5-14.5); Red Blood Cell (RBC) Count 4.27 10x6/uL (4.32-5.72); White Blood Cell (WBC) Count 5.1 10x3/uL (3.5-10.5)
[2022-02-24 05:27] LABS: ALT (SGPT) 56 U/L (8-55); AST (SGOT) 60 U/L (5-34); Albumin 3.5 g/dL (3.5-5.0); Alkaline Phosphatase 61 U/L (40-110); Anion Gap 15 mmol/L (10-20); BUN (Urea Nitrogen) 8 mg/dL (8.9-20.6); Bilirubin, Total 1.9 mg/dL (0.2-1.2); Calc. Creatinine Clearance 170 mL/min (70-130); Calcium 8.2 mg/dL (7.8-10.44); Carbon Dioxide 24 mmol/L (22-29); Cardiac Risk 2.4 (Less than 4.5); Chloride 103 mmol/L (98-107); Cholesterol 130 mg/dl (< 200 Desired); Estimated GFR 124; Globulin 2.7 g/dL (2.4-3.5); Glucose 78 mg/dL (70-105); HDL Cholesterol 55 mg/dL (>60 Neg Risk); LDL Cholesterol, Calculated 62 mg/dL; Magnesium 1.2 mg/dL (1.6-2.6); Potassium 3.5 mmol/L (3.5-5.1); Protein, Total 6.2 g/dL (6.0-8.3); Sodium 138 mmol/L (136-145); Triglycerides 65 mg/dL (Less than 150)
[2022-02-24 05:41] LABS: Syphilis Antibody Nonreactive (Nonreactive); Syphilis Antibody Index 0.12 S/CO (<1.00 Non-Reactive)
[2022-02-24] MEDS ORDERED: Potassium Chloride 20 MEQ TAB PO SCH (05:45)
[2022-02-24 05:46] LABS: INR-International Normal Ratio 1.1; PTT 25.3 sec (22.0-33.0); Prothrombin Time 11.4 sec (9.5-12.1)
[2022-02-24] MEDS: Magnesium 2 GM/50 ML(in water) 2 GM in Premix Bag 1 BAG IVPB SCH ×2 (06:06→08:19)
[2022-02-24] MEDS: Lactated Ringer's 1,000 ML IV SCH ×2 (08:16→15:45)
[2022-02-24] MEDS: Enoxaparin Sodium 40 MG/0.4 ML SYRINGE SC SCH (08:26)
[2022-02-24] MEDS: Diazepam 5 MG TAB PO SCH ×3 (08:26→20:18)
[2022-02-24] MEDS: Famotidine 20 MG TAB PO SCH ×2 (08:28→20:18)
[2022-02-24] MEDS: Folic Acid 1 MG TAB PO SCH (08:31)
[2022-02-24] MEDS: Gabapentin 300 MG CAP PO SCH ×3 (08:32→20:18)
[2022-02-24] MEDS: Magnesium Oxide 400 MG TAB PO SCH ×2 (08:34→20:18)
[2022-02-24] MEDS: Metoprolol Tartrate 25 MG TAB PO SCH ×2 (08:35→20:18)
[2022-02-24] MEDS: Multivit, Therapeutic 1 TAB PO SCH (08:35)
[2022-02-24] MEDS ORDERED: Lorazepam 1 MG TAB PO PRN (14:08)
[2022-02-24] MEDS ORDERED: Lactated Ringer's 1,000 ML IV SCH (17:24)
[2022-02-24 19:53] LABS: HBCM Index 0.14 S/CO (0-0.79); HBSAg Index 0.22 S/CO (0-0.99); Hep A IgM AB Non-Reactive (NonReactive); Hep A IgM S/CO 0.27 S/CO (0-0.79); Hep B Surf Ag Non-Reactive S/CO (NonReactive); Hep C IgG Ab Non-Reactive (NonReactive); Hep C Index 0.06 S/CO (0-0.79); Hepatitis B Core IgM Abs Non-Reactive (NonReactive)
[2022-02-24] MEDS: Melatonin 3 MG TAB PO SCH ×2 (20:17→20:18)
[2022-02-25 04:44] LABS: #Eosinphils 0.2 10x3/uL (0.0-0.5); #Monocytes 0.4 10x3/uL (0.0-1.1); %Basophils 0.4 % (0.0-2.0); %Eosinophils 4.1 % (0.0-6.0); %Lymphocytes 30.2 % (18.0-47.0); %Neutrophils 58.1 % (40.0-75.0); Hemoglobin 12.6 g/dL (13.5-17.5); Mean Corpuscular HGB CONC 34.5 g/dL (32.0-36.0); Mean Corpuscular Hemoglobin 28.9 pg (27.0-33.0); Mean Corpuscular Volume 83.7 fl (81.2-95.1); Mean Platelet Volume 9.8 fl (7.4-10.4); Platelet Count 106 10x3/uL (150-450); RBC Distribution Width 12.4 % (11.5-14.5); Red Blood Cell (RBC) Count 4.36 10x6/uL (4.32-5.72); White Blood Cell (WBC) Count 5.1 10x3/uL (3.5-10.5)
[2022-02-25 04:56] LABS: ALT (SGPT) 57 U/L (8-55); AST (SGOT) 66 U/L (5-34); Albumin 3.7 g/dL (3.5-5.0); Alkaline Phosphatase 70 U/L (40-110); Anion Gap 15 mmol/L (10-20); BUN (Urea Nitrogen) 7 mg/dL (8.9-20.6); Bilirubin, Total 1.3 mg/dL (0.2-1.2); Calc. Creatinine Clearance 182 mL/min (70-130); Calcium 8.7 mg/dL (7.8-10.44); Carbon Dioxide 24 mmol/L (22-29); Chloride 104 mmol/L (98-107); Estimated GFR 126; Globulin 2.8 g/dL (2.4-3.5); Glucose 94 mg/dL (70-105); Potassium 3.6 mmol/L (3.5-5.1); Protein, Total 6.5 g/dL (6.0-8.3); Sodium 139 mmol/L (136-145)
[2022-02-25] MEDS ORDERED: Magnesium 2 GM/50 ML(in water) 2 GM in Premix Bag 1 BAG IVPB SCH (06:00)
[2022-02-25] MEDS: Gabapentin 300 MG CAP PO SCH (08:11)
[2022-02-25] MEDS: Multivit, Therapeutic 1 TAB PO SCH (08:11)
[2022-02-25] MEDS: Folic Acid 1 MG TAB PO SCH (08:12)
[2022-02-25] MEDS: Metoprolol Tartrate 25 MG TAB PO SCH (08:12)
[2022-02-25] MEDS: Enoxaparin Sodium 40 MG/0.4 ML SYRINGE SC SCH (08:12)
[2022-02-25] MEDS: Diazepam 5 MG TAB PO SCH (08:12)
[2022-02-25] MEDS: Magnesium Oxide 400 MG TAB PO SCH (08:12)
[2022-02-25] MEDS: Famotidine 20 MG TAB PO SCH (08:12)
[2022-02-25 09:16] LABS: Magnesium 2.5 mg/dL (1.6-2.6)
[2022-02-25 09:18] VITALS: BP 139/99; TEMP 97.2
[2022-02-25] MEDS ORDERED: Lorazepam 1 MG TAB PO PRN (14:08)
[2022-02-26] MEDS ORDERED: Lorazepam 0.5 MG TAB PO SCH (02:00)
[2022-02-26] MEDS ORDERED: Lorazepam 0.5 MG TAB PO PRN (14:08)
[2022-02-26] MEDS ORDERED: Thiamine 100 MG TAB PO SCH (15:00)
== END 2022-02-25 11:49 | disposition home or self-care (01) | DRG 897 ==
LOC: CSHERS 09:14 → CSHIMCU 14:36
PROVIDERS: ADMIT Family Medicine; ATTEND Internal Medicine
DX: F10.239 Alcohol dependence with withdrawal, unspecified (principal); I10 Essential (primary) hypertension; F43.10 Post-traumatic stress disorder, unspecified; F41.9 Anxiety disorder, unspecified; F31.9 Bipolar disorder, unspecified; G40.909 Epilepsy, unspecified, not intractable, without status epilepticus; E86.0 Dehydration; F10.251 Alcohol dependence with alcohol-induced psychotic disorder with hallucinations; K76.0 Fatty (change of) liver, not elsewhere classified; Z20.822 Contact with and (suspected) exposure to COVID-19; Z91.018 Allergy to other foods; Z79.899 Other long term (current) drug therapy
CPT/HCPCS: 36415; 70450; 71045; 76705; 80053; 80061; 80074; 80306; 81001; 83036; 83605; 83690; 83735; 84443; 84484; 85025; 85610; 85730; 86780; 86850; 86900; 86901; 93005; 93010; 96361; 96374; 96375; 96376; J1200; J1650; J2060; J2765; J3475; J7120; Q0162; U0002

== ENCOUNTER 2022-03-11 21:44 | Emergency (ER) | payer OTHER ==
[2022-03-11 23:31] LABS: #Basophils 0.1 10x3/uL (0.0-0.2); #Eosinphils 0.1 10x3/uL (0.0-0.5); #Monocytes 0.4 10x3/uL (0.0-1.1); #Neutrophils 2.8 10x3/uL (1.5-8.4); %Basophils 1.9 % (0.0-2.0); %Eosinophils 1.4 % (0.0-6.0); %Lymphocytes 30.3 % (18.0-47.0); %Monocytes 9.1 % (0.0-10.0); %Neutrophils 56.7 % (40.0-75.0); Hemoglobin 14.7 g/dL (13.5-17.5); Mean Corpuscular HGB CONC 35.2 g/dL (32.0-36.0); Mean Corpuscular Hemoglobin 28.9 pg (27.0-33.0); Mean Corpuscular Volume 82.1 fl (81.2-95.1); Mean Platelet Volume 8.9 fl (7.4-10.4); Platelet Count 209 10x3/uL (150-450); RBC Distribution Width 12.7 % (11.5-14.5); Red Blood Cell (RBC) Count 5.09 10x6/uL (4.32-5.72); White Blood Cell (WBC) Count 4.9 10x3/uL (3.5-10.5)
[2022-03-11 23:46] LABS: ALT (SGPT) 92 U/L (8-55); AST (SGOT) 68 U/L (5-34); Albumin 3.9 g/dL (3.5-5.0); Alkaline Phosphatase 68 U/L (40-110); Anion Gap 14 mmol/L (10-20); BUN (Urea Nitrogen) 10 mg/dL (8.9-20.6); Bilirubin, Total 0.6 mg/dL (0.2-1.2); Calc. Creatinine Clearance 0 mL/min (70-130); Carbon Dioxide 24 mmol/L (22-29); Chloride 109 mmol/L (98-107); Estimated GFR 125; Globulin 3.1 g/dL (2.4-3.5); Glucose 113 mg/dL (70-105); Lipase 53 U/L (8-78); Sodium 143 mmol/L (136-145)
== END 2022-03-11 23:53 | disposition home or self-care (01) ==
LOC: CSHERS 21:44
DX: F10.10 Alcohol abuse, uncomplicated (principal); R47.81 Slurred speech; I10 Essential (primary) hypertension
CPT/HCPCS: 36415; 80053; 83605; 83690; 85025; 99284

== ENCOUNTER 2022-03-13 17:31 | Observation (INO) | payer OTHER ==
[2022-03-13 18:09] LABS: #Basophils 0.1 10x3/uL (0.0-0.2); #Monocytes 0.4 10x3/uL (0.0-1.1); #Neutrophils 3.9 10x3/uL (1.5-8.4); %Eosinophils 0.5 % (0.0-6.0); %Lymphocytes 24.7 % (18.0-47.0); %Monocytes 6.6 % (0.0-10.0); %Neutrophils 66.9 % (40.0-75.0); Hemoglobin 13.6 g/dL (13.5-17.5); Mean Corpuscular HGB CONC 34.5 g/dL (32.0-36.0); Mean Corpuscular Hemoglobin 28.7 pg (27.0-33.0); Mean Corpuscular Volume 83.1 fl (81.2-95.1); Mean Platelet Volume 9.4 fl (7.4-10.4); Platelet Count 170 10x3/uL (150-450); RBC Distribution Width 12.5 % (11.5-14.5); Red Blood Cell (RBC) Count 4.74 10x6/uL (4.32-5.72); White Blood Cell (WBC) Count 5.8 10x3/uL (3.5-10.5)
[2022-03-13] MEDS ORDERED: Diazepam 10 MG/2 ML SYRINGE ONE (18:15)
[2022-03-13 18:23] LABS: ALT (SGPT) 75 U/L (8-55); AST (SGOT) 70 U/L (5-34); Albumin 4.3 g/dL (3.5-5.0); Alcohol 14 mg/dL (Less than 10); Alkaline Phosphatase 72 U/L (40-110); Anion Gap 20 mmol/L (10-20); BUN (Urea Nitrogen) 10 mg/dL (8.9-20.6); Bilirubin, Total 1.5 mg/dL (0.2-1.2); Calc. Creatinine Clearance 0 mL/min (70-130); Carbon Dioxide 19 mmol/L (22-29); Chloride 101 mmol/L (98-107); Estimated GFR 122; Globulin 3.4 g/dL (2.4-3.5); Glucose 89 mg/dL (70-105); Lipase 59 U/L (8-78); Potassium 3.5 mmol/L (3.5-5.1); Protein, Total 7.7 g/dL (6.0-8.3); Sodium 136 mmol/L (136-145)
[2022-03-13] MEDS ORDERED: Ondansetron PF 4 MG/2 ML Vial ONE (18:57)
[2022-03-13] MEDS ORDERED: Pantoprazole 40 MG VIAL ONE (18:57)
[2022-03-13] MEDS ORDERED: Senokot S 8.6-50 MG TAB PO PRN (20:29)
[2022-03-13] MEDS ORDERED: Acetaminophen 325 MG TAB PO PRN (20:29)
[2022-03-13] MEDS ORDERED: Calcium Carbonate 500 MG ChewTAB PO PRN (20:29)
[2022-03-13] MEDS ORDERED: Ondansetron PF 4 MG/2 ML Vial IVP PRN (20:29)
[2022-03-13] MEDS ORDERED: Guaifenesin DM 100-10/5 ML UDCUP PO PRN (20:29)
[2022-03-13] MEDS ORDERED: Lactated Ringer's 1,000 ML IV SCH (20:45)
[2022-03-13 20:50] LABS: SARS-CoV-2 NAA Rapid Test Not Detected (NotDetected)
[2022-03-13 20:53] LABS: CK (CPK) 336 U/L (30-200); Magnesium 1.4 mg/dL (1.6-2.6); Phosphorus 2.8 mg/dL (2.3-4.7)
[2022-03-13] MEDS ORDERED: Dextrose 5 % And 0.9 % NaCl 1,000 ML IV SCH (21:00)
[2022-03-13] MEDS ORDERED: Potassium Chloride 20 MEQ TAB PO SCH (21:00)
[2022-03-13] MEDS ORDERED: chlordiazePOXIDE HCl 25 MG CAP ONE (21:05)
[2022-03-13 22:12] VITALS: BMI 29.6
[2022-03-13] MEDS: Thiamine HCl 200 MG/2 ML VIAL SLOW IVP SCH (22:41)
[2022-03-13] MEDS: chlordiazePOXIDE HCl 25 MG CAP PO SCH (22:42)
[2022-03-13] MEDS: Famotidine/PF 20 mg/2ml Vial SLOW IVP SCH (22:42)
[2022-03-13] MEDS: Lorazepam 2 MG/ML VIAL SLOW IVP PRN (22:46)
[2022-03-13] MEDS: Metoprolol Tartrate 25 MG TAB PO SCH (22:46)
[2022-03-14] MEDS ORDERED: Potassium Phosphate 15 MMOL in Sodium Chloride 0.9% 100 ML IVPB SCH (01:00)
[2022-03-14] MEDS: Magnesium 2 GM/50 ML(in water) 2 GM in Premix Bag 1 BAG IVPB SCH ×2 (01:46→03:43)
[2022-03-14] MEDS ORDERED: Potassium Chloride 20 MEQ TAB PO SCH (03:15)
[2022-03-14] MEDS: Lorazepam 2 MG/ML VIAL SLOW IVP PRN ×2 (03:52→10:53)
[2022-03-14 06:39] LABS: #Eosinphils 0.1 10x3/uL (0.0-0.5); #Monocytes 0.4 10x3/uL (0.0-1.1); #Neutrophils 2.3 10x3/uL (1.5-8.4); %Basophils 1.1 % (0.0-2.0); %Eosinophils 2.1 % (0.0-6.0); %Lymphocytes 25.1 % (18.0-47.0); %Monocytes 10.2 % (0.0-10.0); %Neutrophils 61.2 % (40.0-75.0); Hemoglobin 13.2 g/dL (13.5-17.5); Mean Corpuscular Hemoglobin 28.7 pg (27.0-33.0); Mean Corpuscular Volume 84.3 fl (81.2-95.1); Mean Platelet Volume 9.2 fl (7.4-10.4); Platelet Count 129 10x3/uL (150-450); RBC Distribution Width 12.5 % (11.5-14.5); White Blood Cell (WBC) Count 3.7 10x3/uL (3.5-10.5)
[2022-03-14 06:45] LABS: Prothrombin Time 10.6 sec (9.5-12.1)
[2022-03-14 06:53] LABS: ALT (SGPT) 59 U/L (8-55); AST (SGOT) 55 U/L (5-34); Albumin 3.9 g/dL (3.5-5.0); Alkaline Phosphatase 69 U/L (40-110); Anion Gap 16 mmol/L (10-20); BUN (Urea Nitrogen) 7 mg/dL (8.9-20.6); Bilirubin, Total 1.8 mg/dL (0.2-1.2); CK (CPK) 229 U/L (30-200); Calc. Creatinine Clearance 153 mL/min (70-130); Calcium 8.5 mg/dL (7.8-10.44); Carbon Dioxide 20 mmol/L (22-29); Chloride 105 mmol/L (98-107); Estimated GFR 119; Globulin 3.2 g/dL (2.4-3.5); Glucose 89 mg/dL (70-105); Magnesium 2.4 mg/dL (1.6-2.6); Potassium 4.5 mmol/L (3.5-5.1); Protein, Total 7.1 g/dL (6.0-8.3); Sodium 136 mmol/L (136-145)
[2022-03-14] MEDS: Gabapentin 300 MG CAP PO SCH (09:31)
[2022-03-14] MEDS: Metoprolol Tartrate 25 MG TAB PO SCH (09:32)
[2022-03-14] MEDS: chlordiazePOXIDE HCl 25 MG CAP PO SCH ×3 (09:32→22:03)
[2022-03-14] MEDS: Multivitamin W/ Minerals 1 TAB PO SCH (09:32)
[2022-03-14] MEDS: Famotidine/PF 20 mg/2ml Vial SLOW IVP SCH ×2 (09:32→22:02)
[2022-03-14] MEDS: Folic Acid 1 MG TAB PO SCH (09:32)
[2022-03-14] MEDS: Thiamine HCl 200 MG/2 ML VIAL SLOW IVP SCH (22:02)
[2022-03-14] MEDS ORDERED: Lorazepam 1 MG TAB PO PRN (23:46)
[2022-03-15] MEDS ORDERED: Amlodipine 5 MG TAB PO SCH (09:00)
[2022-03-15] MEDS: Multivitamin W/ Minerals 1 TAB PO SCH (09:10)
[2022-03-15] MEDS: Famotidine/PF 20 mg/2ml Vial SLOW IVP SCH (09:10)
[2022-03-15] MEDS: chlordiazePOXIDE HCl 25 MG CAP PO SCH (09:11)
[2022-03-15] MEDS: Folic Acid 1 MG TAB PO SCH (09:11)
[2022-03-15] MEDS: Gabapentin 300 MG CAP PO SCH (09:11)
[2022-03-15 12:15] VITALS: BP 130/85; TEMP 98.3
== END 2022-03-15 12:50 | disposition home or self-care (01) ==
LOC: CSHERS 17:31 → CSHTELE 21:59
PROVIDERS: ADMIT Internal Medicine; ATTEND Internal Medicine
DX: F10.139 Alcohol abuse with withdrawal, unspecified (principal); I10 Essential (primary) hypertension; R79.89 Other specified abnormal findings of blood chemistry; G62.9 Polyneuropathy, unspecified; G89.29 Other chronic pain; M54.50 Low back pain, unspecified; E83.42 Hypomagnesemia; F12.11 Cannabis abuse, in remission; Z79.899 Other long term (current) drug therapy; Z91.018 Allergy to other foods; Z20.822 Contact with and (suspected) exposure to COVID-19; Y90.0 Blood alcohol level of less than 20 mg/100 ml
CPT/HCPCS: 80053; 80307; 82550; 83605; 83690; 83735; 84100; 85025; 85610; 85730; 93005; 96374; 96375; 96376; C9113; G0378; J2060; J2405; J3360; J3411; J3475; J3490; J7042; J7120; S0028; U0002

== ENCOUNTER 2022-04-05 17:01 | Emergency (ER) | payer OTHER ==
[2022-04-05 17:42] LABS: #Eosinphils 0.1 10x3/uL (0.0-0.5); #Monocytes 0.3 10x3/uL (0.0-1.1); #Neutrophils 3.8 10x3/uL (1.5-8.4); %Basophils 0.7 % (0.0-2.0); %Eosinophils 1.4 % (0.0-6.0); %Lymphocytes 27.7 % (18.0-47.0); %Monocytes 4.5 % (0.0-10.0); %Neutrophils 65.5 % (40.0-75.0); Hemoglobin 15.8 g/dL (13.5-17.5); Mean Corpuscular HGB CONC 35.9 g/dL (32.0-36.0); Mean Corpuscular Hemoglobin 29.2 pg (27.0-33.0); Mean Corpuscular Volume 81.3 fl (81.2-95.1); Mean Platelet Volume 9.5 fl (7.4-10.4); Platelet Count 140 10x3/uL (150-450); RBC Distribution Width 12.9 % (11.5-14.5); Red Blood Cell (RBC) Count 5.41 10x6/uL (4.32-5.72); White Blood Cell (WBC) Count 5.8 10x3/uL (3.5-10.5)
[2022-04-05 17:49] LABS: ALT (SGPT) 71 U/L (8-55); AST (SGOT) 85 U/L (5-34); Albumin 4.6 g/dL (3.5-5.0); Alkaline Phosphatase 79 U/L (40-110); Anion Gap 22 mmol/L (10-20); BUN (Urea Nitrogen) 9 mg/dL (8.9-20.6); Bilirubin, Total 1.1 mg/dL (0.2-1.2); Calc. Creatinine Clearance 0 mL/min (70-130); Calcium 9.1 mg/dL (7.8-10.44); Carbon Dioxide 19 mmol/L (22-29); Chloride 104 mmol/L (98-107); Estimated GFR 113; Globulin 3.6 g/dL (2.4-3.5); Glucose 109 mg/dL (70-105); Protein, Total 8.2 g/dL (6.0-8.3); Sodium 141 mmol/L (136-145)
[2022-04-05 17:50] LABS: Acetaminophen Less than 10.0 mcg/mL (10.0-30.0); Alcohol 202 mg/dL (Less than 10); Salicylate Less than 8.0 mg/dL (15.0-30.0)
[2022-04-05] MEDS ORDERED: Thiamine HCl 200 MG/2 ML VIAL ONE (17:52)
[2022-04-05] MEDS ORDERED: Lorazepam 2 MG/ML VIAL ONE (17:53)
[2022-04-05] MEDS ORDERED: Pantoprazole 40 MG VIAL ONE (18:28)
[2022-04-05] MEDS ORDERED: Octreotide Acetate 1,250 MCG in Sodium Chloride 0.9% 250 ML 250 ML IVPB SCH (18:30)
== END 2022-04-05 19:48 | disposition home or self-care (01) ==
LOC: CSHERS 17:01
DX: R11.2 Nausea with vomiting, unspecified (principal); F10.10 Alcohol abuse, uncomplicated; I10 Essential (primary) hypertension; Z79.899 Other long term (current) drug therapy
CPT/HCPCS: 36415; 74177; 80053; 80307; 83690; 85025; 86850; 86900; 86901; 93005; C9113; J2060; J2354; J3411; J7050

== ENCOUNTER 2022-04-06 00:54 | Inpatient (IN) | payer OTHER ==
[2022-04-06] MEDS ORDERED: Lorazepam 2 MG/ML VIAL ONE ×2 (01:12→01:46)
[2022-04-06 01:35] LABS: #Monocytes 0.4 10x3/uL (0.0-1.1); %Basophils 0.3 % (0.0-2.0); %Eosinophils 0.2 % (0.0-6.0); %Lymphocytes 11.7 % (18.0-47.0); %Monocytes 3.4 % (0.0-10.0); %Neutrophils 84.1 % (40.0-75.0); Hemoglobin 14.6 g/dL (13.5-17.5); Mean Corpuscular HGB CONC 35.2 g/dL (32.0-36.0); Mean Corpuscular Volume 82.3 fl (81.2-95.1); Mean Platelet Volume 9.6 fl (7.4-10.4); Platelet Count 126 10x3/uL (150-450); RBC Distribution Width 12.8 % (11.5-14.5); Red Blood Cell (RBC) Count 5.04 10x6/uL (4.32-5.72); White Blood Cell (WBC) Count 11.9 10x3/uL (3.5-10.5)
[2022-04-06 01:36] LABS: ALT (SGPT) 66 U/L (8-55); AST (SGOT) 85 U/L (5-34); Albumin 4.5 g/dL (3.5-5.0); Alcohol 19 mg/dL (Less than 10); Alkaline Phosphatase 82 U/L (40-110); Anion Gap 23 mmol/L (10-20); BUN (Urea Nitrogen) 8 mg/dL (8.9-20.6); Bilirubin, Total 1.8 mg/dL (0.2-1.2); Calc. Creatinine Clearance 0 mL/min (70-130); Calcium 8.8 mg/dL (7.8-10.44); Carbon Dioxide 16 mmol/L (22-29); Chloride 103 mmol/L (98-107); Estimated GFR 122; Globulin 3.7 g/dL (2.4-3.5); Glucose 84 mg/dL (70-105); Magnesium 1.4 mg/dL (1.6-2.6); Potassium 3.8 mmol/L (3.5-5.1); Protein, Total 8.2 g/dL (6.0-8.3); Sodium 138 mmol/L (136-145)
[2022-04-06] MEDS ORDERED: Magnesium 2 GM/50 ML BAG (IN WATER) ONE (01:56)
[2022-04-06] MEDS ORDERED: Calcium Carbonate 500 MG ChewTAB PO PRN (02:14)
[2022-04-06] MEDS ORDERED: Senokot S 8.6-50 MG TAB PO PRN (02:14)
[2022-04-06] MEDS ORDERED: Guaifenesin DM 100-10/5 ML UDCUP PO PRN (02:14)
[2022-04-06] MEDS ORDERED: Ondansetron PF 4 MG/2 ML Vial IVP PRN (02:14)
[2022-04-06] MEDS ORDERED: Potassium Chloride 20 MEQ TAB PO SCH (02:30)
[2022-04-06 02:46] VITALS: BMI 29.7
[2022-04-06] MEDS: Dextrose 5 % And 0.9 % NaCl 1,000 ML IV SCH ×3 (03:13→17:29)
[2022-04-06 03:30] LABS: #Monocytes 0.4 10x3/uL (0.0-1.1); #Neutrophils 9.7 10x3/uL (1.5-8.4); %Basophils 0.3 % (0.0-2.0); %Eosinophils 0.3 % (0.0-6.0); %Lymphocytes 11.6 % (18.0-47.0); %Monocytes 3.6 % (0.0-10.0); Hemoglobin 13.5 g/dL (13.5-17.5); Mean Corpuscular HGB CONC 34.8 g/dL (32.0-36.0); Mean Corpuscular Hemoglobin 28.9 pg (27.0-33.0); Mean Corpuscular Volume 83.1 fl (81.2-95.1); Mean Platelet Volume 9.6 fl (7.4-10.4); Platelet Count 119 10x3/uL (150-450); RBC Distribution Width 12.9 % (11.5-14.5); Red Blood Cell (RBC) Count 4.67 10x6/uL (4.32-5.72); White Blood Cell (WBC) Count 11.5 10x3/uL (3.5-10.5)
[2022-04-06 03:33] LABS: Lactic Acid 0.8 mmol/L (0.5-2.2)
[2022-04-06] MEDS: Dexmedetomidine In 0.9 % NaCl 100 ML IVPB SCH ×2 (03:39→17:29)
[2022-04-06 03:46] LABS: ALT (SGPT) 60 U/L (8-55); AST (SGOT) 76 U/L (5-34); Albumin 4.2 g/dL (3.5-5.0); Alkaline Phosphatase 75 U/L (40-110); Anion Gap 21 mmol/L (10-20); BUN (Urea Nitrogen) 8 mg/dL (8.9-20.6); Bilirubin, Total 1.9 mg/dL (0.2-1.2); CK (CPK) 157 U/L (30-200); Calc. Creatinine Clearance 169 mL/min (70-130); Calcium 8.2 mg/dL (7.8-10.44); Carbon Dioxide 16 mmol/L (22-29); Chloride 103 mmol/L (98-107); Cholesterol 157 mg/dl (< 200 Desired); Estimated GFR 123; Globulin 3.3 g/dL (2.4-3.5); Glucose 80 mg/dL (70-105); HDL Cholesterol 78 mg/dL (>60 Neg Risk); LDL Cholesterol, Calculated 65 mg/dL; Magnesium 2.1 mg/dL (1.6-2.6); Phosphorus 2.4 mg/dL (2.3-4.7); Potassium 3.7 mmol/L (3.5-5.1); Protein, Total 7.5 g/dL (6.0-8.3); Sodium 136 mmol/L (136-145); Triglycerides 72 mg/dL (Less than 150)
[2022-04-06] MEDS: Lorazepam 2 MG/ML VIAL SLOW IVP SCH ×3 (04:48→09:30)
[2022-04-06 04:51] VITALS: BP 138/97; TEMP 99
[2022-04-06 04:55] LABS: SARS-CoV-2 NAA Rapid Test Not Detected (NotDetected)
[2022-04-06] MEDS: Multivitamin W/ Minerals 1 TAB PO SCH (08:29)
[2022-04-06] MEDS: Thiamine 100 MG TAB PO SCH (08:29)
[2022-04-06] MEDS: Folic Acid 1 MG TAB PO SCH (08:29)
[2022-04-06] MEDS: Pantoprazole 40 MG VIAL IVP SCH ×2 (08:29→21:10)
[2022-04-06] MEDS: chlordiazePOXIDE HCl 25 MG CAP PO SCH ×3 (08:29→21:10)
[2022-04-06] MEDS ORDERED: Famotidine/PF 20 mg/2ml Vial SLOW IVP SCH (09:00)
[2022-04-06] MEDS ORDERED: Enoxaparin Sodium 40 MG/0.4 ML SYRINGE SC SCH (09:00)
[2022-04-06] MEDS: Gabapentin 100 MG CAP PO SCH (10:20)
[2022-04-06] MEDS: Acetaminophen 325 MG TAB PO PRN (23:33)
[2022-04-06] MEDS: Lorazepam 2 MG/ML VIAL SLOW IVP PRN (23:35)
[2022-04-07] MEDS: Dextrose 5 % And 0.9 % NaCl 1,000 ML IV SCH ×3 (02:17→20:50)
[2022-04-07 04:53] LABS: #Eosinphils 0.1 10x3/uL (0.0-0.5); #Monocytes 0.2 10x3/uL (0.0-1.1); #Neutrophils 2.5 10x3/uL (1.5-8.4); %Basophils 0.2 % (0.0-2.0); %Eosinophils 3.3 % (0.0-6.0); %Lymphocytes 31.3 % (18.0-47.0); %Monocytes 5.5 % (0.0-10.0); %Neutrophils 59.5 % (40.0-75.0); Hemoglobin 11.7 g/dL (13.5-17.5); Mean Corpuscular HGB CONC 34.3 g/dL (32.0-36.0); Mean Corpuscular Hemoglobin 29.1 pg (27.0-33.0); Mean Corpuscular Volume 84.8 fl (81.2-95.1); Mean Platelet Volume 10.3 fl (7.4-10.4); Platelet Count 87 10x3/uL (150-450); RBC Distribution Width 12.7 % (11.5-14.5); Red Blood Cell (RBC) Count 4.02 10x6/uL (4.32-5.72); White Blood Cell (WBC) Count 4.2 10x3/uL (3.5-10.5)
[2022-04-07 05:02] LABS: ALT (SGPT) 53 U/L (8-55); AST (SGOT) 87 U/L (5-34); Albumin 3.5 g/dL (3.5-5.0); Alkaline Phosphatase 61 U/L (40-110); Anion Gap 10 mmol/L (10-20); BUN (Urea Nitrogen) 5 mg/dL (8.9-20.6); Bilirubin, Total 1.6 mg/dL (0.2-1.2); CK (CPK) 100 U/L (30-200); Calc. Creatinine Clearance 194 mL/min (70-130); Calcium 7.8 mg/dL (7.8-10.44); Carbon Dioxide 23 mmol/L (22-29); Chloride 108 mmol/L (98-107); Estimated GFR 127; Globulin 2.8 g/dL (2.4-3.5); Glucose 102 mg/dL (70-105); Phosphorus 1.5 mg/dL (2.3-4.7); Potassium 4.2 mmol/L (3.5-5.1); Protein, Total 6.3 g/dL (6.0-8.3); Sodium 137 mmol/L (136-145)
[2022-04-07] MEDS ORDERED: Potassium Chloride 20 MEQ TAB PO SCH (05:45)
[2022-04-07] MEDS ORDERED: Potassium Phosphate 30 MMOL in Sodium Chloride 0.9% 250 ML 250 ML IVPB SCH (06:00)
[2022-04-07] MEDS: Gabapentin 100 MG CAP PO SCH (08:34)
[2022-04-07] MEDS: Thiamine 100 MG TAB PO SCH (08:34)
[2022-04-07] MEDS: PHOS-NAK 1 PKT PACK PO SCH ×2 (08:34→20:49)
[2022-04-07] MEDS: Pantoprazole 40 MG VIAL IVP SCH (08:35)
[2022-04-07] MEDS: Folic Acid 1 MG TAB PO SCH (08:35)
[2022-04-07] MEDS: chlordiazePOXIDE HCl 25 MG CAP PO SCH ×3 (08:35→20:50)
[2022-04-07] MEDS: Multivitamin W/ Minerals 1 TAB PO SCH (08:35)
[2022-04-07] MEDS: Acetaminophen 325 MG TAB PO PRN (09:04)
[2022-04-07] MEDS: Lorazepam 2 MG/ML VIAL SLOW IVP PRN ×2 (09:05→16:59)
[2022-04-07] MEDS: Dexmedetomidine In 0.9 % NaCl 100 ML IVPB SCH (16:09)
[2022-04-08] MEDS: Lorazepam 2 MG/ML VIAL SLOW IVP PRN ×2 (00:09→06:38)
[2022-04-08] MEDS: Dextrose 5 % And 0.9 % NaCl 1,000 ML IV SCH (06:21)
[2022-04-08] MEDS: chlordiazePOXIDE HCl 25 MG CAP PO SCH (08:44)
[2022-04-08] MEDS: Multivitamin W/ Minerals 1 TAB PO SCH (08:44)
[2022-04-08] MEDS: Gabapentin 100 MG CAP PO SCH (08:44)
[2022-04-08] MEDS: Thiamine 100 MG TAB PO SCH (08:44)
[2022-04-08] MEDS: Folic Acid 1 MG TAB PO SCH (08:44)
[2022-04-08] MEDS: PHOS-NAK 1 PKT PACK PO SCH (08:44)
== END 2022-04-08 12:50 | disposition home or self-care (01) | DRG 897 ==
LOC: CSHERS 00:54 → CSHICU 01:53
PROVIDERS: ADMIT Student in an Organized Health Care Education/Training Program; ATTEND Internal Medicine
DX: F10.239 Alcohol dependence with withdrawal, unspecified (principal); E87.2 Acidosis; R65.10 Systemic inflammatory response syndrome (SIRS) of non-infectious origin without acute organ dysfunction; I10 Essential (primary) hypertension; F41.9 Anxiety disorder, unspecified; F31.9 Bipolar disorder, unspecified; F43.10 Post-traumatic stress disorder, unspecified; E83.42 Hypomagnesemia; G89.29 Other chronic pain; G62.9 Polyneuropathy, unspecified; F41.1 Generalized anxiety disorder; D69.6 Thrombocytopenia, unspecified; K76.0 Fatty (change of) liver, not elsewhere classified; Z20.822 Contact with and (suspected) exposure to COVID-19; Z91.018 Allergy to other foods
CPT/HCPCS: 36415; 71045; 74177; 80053; 80061; 80307; 82550; 83605; 83690; 83735; 84100; 84443; 85025; 86850; 86900; 86901; 93005; 94760; 96361; 96365; 96375; 96376; C9113; J2060; J2354; J3411; J3475; J7042; J7050; U0002